=== PATIENT | male | born 1950 | race Caucasian/White ===

== ENCOUNTER 2020-08-26 11:52 | Inpatient (IN) | payer MEDICARE ==
[~2020-08-26] VITALS: Ht 170.2 cm; Wt 59.8 kg
[~2020-08-26 11:52] MED LIST: AMLODIPINE PO; ASPI81CH; ATORVASTATIN CA40 MG PO; CALCA500CH PO; CAND32; EZET10-40 PO; FISH1000 PO; Fluocinonide15 G1 TOP; LISINOPRIL PO; METO100ER; METO100ER PO; MULVITA PO; NIAC500 PO; PIME1CR TOP; Plavix75 MG PO; SIMV40; TRIA80TC TOP; VARE1 PO
[2020-08-26 13:11] LABS: BASOPHILS ABSOLUTE AUTO 0.04 K/mm3 (0.00-0.23); BASOPHILS PERCENT AUTO 1 % (0-2); EOSINOPHILS ABSOLUTE AUTO 0.04 K/mm3 (0.00-0.68); EOSINOPHILS PERCENT AUTO 1 % (0-6); Hematocrit 40.5 % (37.0-53.0); Hemoglobin 13.3 g/dL (13.5-17.5); IMMATURE GRAN ABSOLUTE AUTO 0.01 K/mm3 (0.00-0.10); IMMATURE GRAN PERCENT AUTO 0 % (0-1); LYMPHOCYTES ABSOLUTE AUTO 1.65 K/mm3 (0.84-5.20); LYMPHOCYTES PERCENT AUTO 24 % (21-46); MONOCYTES ABSOLUTE AUTO 0.58 K/mm3 (0.16-1.47); MONOCYTES PERCENT AUTO 9 % (4-13); Mean Corpuscular HGB 29.1 pg (26.0-34.0); Mean Corpuscular HGB Conc 32.8 g/dL (31.5-36.5); Mean Corpuscular Volume 89 fL (80-100); Mean Platelet Volume 10.6 fL (9.1-12.4); NEUTROPHILS ABSOLUTE AUTO 4.45 K/mm3 (1.96-9.15); NEUTROPHILS PERCENT AUTO 66 % (41-73); Platelet Count 383 K/mm3 (150-400); RDW Coefficient Variation 14.9 % (11.7-14.2); RDW Standard Deviation 48.9 fL (35.1-46.3); Red Blood Cell Count 4.57 M/mm3 (4.30-5.90); White Blood Cell Count 6.77 K/mm3 (4.00-11.30)
[2020-08-26 13:37] LABS: Alanine Aminotransfer (ALT/SGP 13 U/L (12-78); Albumin, Blood 3.4 g/dL (3.4-5.0); Albumin/Globulin Ratio 0.5 (0.8-1.8); Alk Phos 81 U/L (50-136); Anion Gap 6 mmol/L (6-16); Aspartate Aminotrans (AST/SGOT 16 U/L (12-37); Bilirubin, Total 0.4 mg/dL (0.1-1.0); Blood Urea Nitrogen 24 mg/dL (8-24); Bun/Creatinine Ratio 25.2 (12.0-20.0); CO2, Blood 29 mmol/L (21-32); Chloride, Blood 102 mmol/L (98-108); Creatinine, Blood 0.95 mg/dL (0.60-1.20); Globulin, Blood 6.2 g/dL (2.2-4.0); Glomerular Filtration Rate >60 (60-); Glucose, Blood 88 mg/dL (70-99); Potassium, Blood 3.6 mmol/L (3.5-5.5); Sodium, Blood 137 mmol/L (136-145); Total Protein, Blood 9.6 g/dL (6.4-8.2)
[2020-08-26] MEDS ORDERED: Triamcinolone A15 G3 TOP (19:57)
--- NOTE | 2020-08-27 04:23 | NUR ---
SHIFT SUMMARY PT ER ADMIT THIS SHIFT FOR CVA. PT HAS RESTED MOST OF THE NIGHT, HE HAS DENIED PAIN OR NEEDS. RIGHT SIDED WEAKNESS PRESENT PREDOMINATELY IN RIGHT ARM. RIGHT LEG DOES HAVE SOME WEAKNESS. PT UNABLE TO LIFT RIGHT ARM AND HAS TO USE HIS LEFT ARM TO NET SOFTWARE ENGINEER THE RIGHT. SPEECH IS CLEAR, PT A/OX4. TELE IN PLACE WITH NSR. PT DID HAVE A 7 BEAT RUN OF VTACH AROUND 2200, PROVIDER WAS MADE AWARE WITH NO NEW ORDERS GIVEN. PT HAS NOT HAD ANYMORE EVENTS ON TELE SINCE THAT TIME. NO OTHER CHANGES TO REPORT. BED IN LOWEST POSITION, CALL LIGHT WITHIN REACH.
[2020-08-27 04:51] LABS: BASOPHILS ABSOLUTE AUTO 0.05 K/mm3 (0.00-0.23); BASOPHILS PERCENT AUTO 1 % (0-2); EOSINOPHILS ABSOLUTE AUTO 0.14 K/mm3 (0.00-0.68); EOSINOPHILS PERCENT AUTO 2 % (0-6); Hematocrit 36.1 % (37.0-53.0); Hemoglobin 11.8 g/dL (13.5-17.5); Mean Corpuscular HGB 28.6 pg (26.0-34.0); Mean Corpuscular HGB Conc 32.7 g/dL (31.5-36.5); Mean Corpuscular Volume 88 fL (80-100); Mean Platelet Volume 10.4 fL (9.1-12.4); Platelet Count 327 K/mm3 (150-400); RDW Coefficient Variation 14.8 % (11.7-14.2); RDW Standard Deviation 47.9 fL (35.1-46.3); Red Blood Cell Count 4.12 M/mm3 (4.30-5.90); White Blood Cell Count 6.62 K/mm3 (4.00-11.30)
[2020-08-27 05:41] LABS: IMMATURE GRAN ABSOLUTE AUTO 0.01 K/mm3 (0.00-0.10); IMMATURE GRAN PERCENT AUTO 0 % (0-1); LYMPHOCYTES ABSOLUTE AUTO 1.94 K/mm3 (0.84-5.20); LYMPHOCYTES PERCENT AUTO 29 % (21-46); MONOCYTES ABSOLUTE AUTO 0.62 K/mm3 (0.16-1.47); MONOCYTES PERCENT AUTO 9 % (4-13); NEUTROPHILS ABSOLUTE AUTO 3.86 K/mm3 (1.96-9.15); NEUTROPHILS PERCENT AUTO 58 % (41-73)
[2020-08-27 05:51] LABS: Anion Gap 7 mmol/L (6-16); Blood Urea Nitrogen 23 mg/dL (8-24); Bun/Creatinine Ratio 24.9 (12.0-20.0); CHOL/HDL RATIO 5.2; CO2, Blood 26 mmol/L (21-32); Calcium, Blood 9.2 mg/dL (8.5-10.1); Chloride, Blood 105 mmol/L (98-108); Cholesterol 134 mg/dL (50-200); Creatinine, Blood 0.92 mg/dL (0.60-1.20); Glomerular Filtration Rate >60 (60-); Glucose, Blood 80 mg/dL (70-99); HDL Cholesterol 26 mg/dL (>39); LDL/HDL RATIO 3.1; Low Density Lipoprotein Chol 81 mg/dL (0-110); Potassium, Blood 3.8 mmol/L (3.5-5.5); Sodium, Blood 138 mmol/L (136-145); Triglycerides 136 mg/dL (30-160); Very Low Density Lipoprot Chol 27 mg/dL (6-32)
[2020-08-27 05:56] LABS: BASOPHILS ABSOLUTE MAN 0.13 K/mm3 (0.00-0.23); BASOPHILS PERCENT MAN 2 % (0-2); EOSINOPHILS PERCENT MAN 0 % (0-6); LYMPHOCYTES % ATYPICAL MANUAL 4 % (0-0); LYMPHOCYTES ABSOLUTE MAN 1.98 K/mm3 (0.84-5.20); LYMPHOCYTES PERCENT MAN 26 % (21-46); MONOCYTES ABSOLUTE MAN 0.19 K/mm3 (0.16-1.47); MONOCYTES PERCENT MAN 3 % (4-13); SEG NEUTROPHILS PERCENT MAN 65 % (41-73); TOTAL CELLS COUNTED 100
--- NOTE | 2020-08-27 19:18 | NUR ---
PT RESTING IN BED AFTER DINNER AND PM MEDICATION ADMIN. R DISE DEF. AND RIGHT HAND CONTRACTURE NOTED. PT REMAINED ALERT AND ORIENTED X4 AND ANXIOUSE RE DISCHARGE. PT MAKES NO COMPLAINTS AT THIS TIME. PT HAD A VTACH EPISODE THIS SHIFT WITH A RUN OF SEVEN. PT WAS ASYMPTOMATIC. STAFF WILL CONT TO MONITOR FOR CHANGES.
--- NOTE | 2020-08-28 04:21 | NUR ---
PREPRESS SPECIALIST SUMMARY A/O X4, COOPERATIVE BUT IRRITABLE AT TIMES WHEN NURSES ATTEMPT TO PROVIDE CARE. DENIES PAIN OR SOB. GROSS MOVEMENT TO RUE, WEAKNESS TO RLE. VSS, NO ACUTE CHANGES AT THIS TIME. BED IN LOWEST POSITION WITH CALL LIGHT IN REACH. WILL CONTINUE TO MONITOR AND REPORT TO ONCOMING RN.
[2020-08-28 04:48] LABS: BASOPHILS ABSOLUTE AUTO 0.04 K/mm3 (0.00-0.23); BASOPHILS PERCENT AUTO 1 % (0-2); EOSINOPHILS ABSOLUTE AUTO 0.11 K/mm3 (0.00-0.68); EOSINOPHILS PERCENT AUTO 2 % (0-6); Hematocrit 34.6 % (37.0-53.0); Hemoglobin 11.4 g/dL (13.5-17.5); IMMATURE GRAN ABSOLUTE AUTO 0.01 K/mm3 (0.00-0.10); IMMATURE GRAN PERCENT AUTO 0 % (0-1); LYMPHOCYTES ABSOLUTE AUTO 2.05 K/mm3 (0.84-5.20); LYMPHOCYTES PERCENT AUTO 29 % (21-46); MONOCYTES ABSOLUTE AUTO 0.78 K/mm3 (0.16-1.47); MONOCYTES PERCENT AUTO 11 % (4-13); Mean Corpuscular HGB 29.2 pg (26.0-34.0); Mean Corpuscular HGB Conc 32.9 g/dL (31.5-36.5); Mean Corpuscular Volume 89 fL (80-100); Mean Platelet Volume 10.8 fL (9.1-12.4); NEUTROPHILS ABSOLUTE AUTO 4.14 K/mm3 (1.96-9.15); NEUTROPHILS PERCENT AUTO 58 % (41-73); Platelet Count 318 K/mm3 (150-400); RDW Coefficient Variation 14.7 % (11.7-14.2); RDW Standard Deviation 47.5 fL (35.1-46.3); Red Blood Cell Count 3.91 M/mm3 (4.30-5.90); White Blood Cell Count 7.13 K/mm3 (4.00-11.30)
[2020-08-28] MEDS ORDERED: ATOR40TA PO (12:03)
[2020-08-28] MEDS ORDERED: ASPI81CH PO (12:04)
[2020-08-28] MEDS ORDERED: METO25ER PO (12:05)
--- NOTE | 2020-08-28 17:32 | NUR ---
PT WAS DISCHARGED VIA WHEELCHAIR WITH FAMILY AT SIDE. PT WAS ALERT AND ORIENTED, IV LINE DC'D AND WNL. PT BELONGINGS AT SIDE. PT WAS ABLE TO VERBAIZE UNDERSTANDING OF DISCHARGE INSTRUCTIONS. MEDICATIONS FAXED AND EDUCATION PROVIDED.
== END 2020-08-28 15:28 | disposition home or self-care (01) | DRG 65 ==
LOC: ER 11:52 → ERHOLD 16:07 → MEDS 16:07
PROVIDERS: Family Medicine; Physician Assistant; ADMIT Internal Medicine
DX: I63.532 Cerebral infarction due to unspecified occlusion or stenosis of left posterior cerebral artery (principal); G81.91 Hemiplegia, unspecified affecting right dominant side; I50.22 Chronic systolic (congestive) heart failure; I25.10 Atherosclerotic heart disease of native coronary artery without angina pectoris; I11.0 Hypertensive heart disease with heart failure; I65.21 Occlusion and stenosis of right carotid artery; R73.03 Prediabetes; E78.00 Pure hypercholesterolemia, unspecified; F17.210 Nicotine dependence, cigarettes, uncomplicated; I25.2 Old myocardial infarction; Z86.73 Personal history of transient ischemic attack (TIA), and cerebral infarction without residual deficits; Z95.5 Presence of coronary angioplasty implant and graft; Z79.02 Long term (current) use of antithrombotics/antiplatelets
CPT/HCPCS: 36415; 70450; 70496; 80048; 80053; 80061; 82947; 83036; 85025; 92610; 93306; 93880; 96372; 97110; 97116; 97162; 97166; 97530; 99285-25; A9270; G0378; J1650; Q9967

== ENCOUNTER 2021-01-01 11:07 | Emergency (ER) | payer MEDICARE ==
[~2021-01-01] VITALS: Ht 170.2 cm; Wt 59.0 kg
[~2021-01-01 11:07] MED LIST changes: +ASPI81CH PO; +ATOR40TA PO; +METO25ER PO; +Triamcinolone A15 G3 TOP
[2021-01-01 11:58] LABS: BASOPHILS ABSOLUTE AUTO 0.04 K/mm3 (0.00-0.23); BASOPHILS PERCENT AUTO 0 % (0-2); EOSINOPHILS ABSOLUTE AUTO 0.04 K/mm3 (0.00-0.68); EOSINOPHILS PERCENT AUTO 0 % (0-6); Hematocrit 46.3 % (37.0-53.0); Hemoglobin 14.7 g/dL (13.5-17.5); IMMATURE GRAN ABSOLUTE AUTO 0.06 K/mm3 (0.00-0.10); IMMATURE GRAN PERCENT AUTO 1 % (0-1); LYMPHOCYTES ABSOLUTE AUTO 0.84 K/mm3 (0.84-5.20); LYMPHOCYTES PERCENT AUTO 8 % (21-46); MONOCYTES ABSOLUTE AUTO 0.69 K/mm3 (0.16-1.47); MONOCYTES PERCENT AUTO 6 % (4-13); Mean Corpuscular HGB 28.6 pg (26.0-34.0); Mean Corpuscular HGB Conc 31.7 g/dL (31.5-36.5); Mean Corpuscular Volume 90 fL (80-100); Mean Platelet Volume 11.4 fL (9.1-12.4); NEUTROPHILS ABSOLUTE AUTO 9.05 K/mm3 (1.96-9.15); NEUTROPHILS PERCENT AUTO 84 % (41-73); Platelet Count 208 K/mm3 (150-400); RDW Coefficient Variation 20.8 % (11.7-14.2); RDW Standard Deviation 65.5 fL (35.1-46.3); Red Blood Cell Count 5.14 M/mm3 (4.30-5.90); White Blood Cell Count 10.72 K/mm3 (4.00-11.30)
[2021-01-01 12:09] LABS: Alanine Aminotransfer (ALT/SGP 67 U/L (12-78); Albumin, Blood 2.3 g/dL (3.4-5.0); Albumin/Globulin Ratio 0.4 (0.8-1.8); Alk Phos 81 U/L (50-136); Anion Gap 8 mmol/L (6-16); Aspartate Aminotrans (AST/SGOT 44 U/L (12-37); Bilirubin, Total 1.5 mg/dL (0.1-1.0); Blood Urea Nitrogen 19 mg/dL (8-24); Bun/Creatinine Ratio 20.4 (12.0-20.0); CO2, Blood 22 mmol/L (21-32); Calcium, Blood 8.3 mg/dL (8.5-10.1); Chloride, Blood 109 mmol/L (98-108); Creatinine, Blood 0.93 mg/dL (0.60-1.20); Globulin, Blood 5.4 g/dL (2.2-4.0); Glomerular Filtration Rate >60 (60-); Glucose, Blood 105 mg/dL (70-99); Potassium, Blood 4.1 mmol/L (3.5-5.5); Sodium, Blood 139 mmol/L (136-145); Total Protein, Blood 7.7 g/dL (6.4-8.2); Troponin I 0.025 ng/mL (0.000-0.040)
[2021-01-01 12:42] LABS: SARS-Cov-2 (COVID-19) PCR, MMC NEGATIVE (NEGATIVE)
[2021-01-01] MEDS ORDERED: Lasix20 MG PO (13:37)
[2021-01-01 13:38] LABS: International Normalized Ratio 1.26; Prothrombin Time Results 13.4 Sec (9.7-11.5)
[2021-01-01 15:58] LABS: Automated BF WBC Count 2.164 K/mm3 (0-999); Body Fluid WBC Count 2164 /mm3 (0-999)
[2021-01-01 16:25] LABS: Glucose, Body Fluid 98 mg/dL
[2021-01-01 16:35] LABS: Lactate Dehydrogenase, Body Fl 200 U/L; Protein, Body Fluid 2.3 g/dL
[2021-01-01 16:40] LABS: RBC Count, Body Fluid 30 /mm3 (0-0)
[2021-01-01 16:41] LABS: Appearance, Body Fluid Clear (Clear); Color, Body Fluid Yellow (None-Yellow)
[2021-01-01 17:18] LABS: Total Cell Count, Body Fluid 100
== END 2021-01-01 16:33 | disposition home or self-care (01) ==
LOC: ER 11:07
PROVIDERS: Emergency Medicine; Physician Assistant
DX: I11.0 Hypertensive heart disease with heart failure (principal); I50.9 Heart failure, unspecified; J90 Pleural effusion, not elsewhere classified; I25.10 Atherosclerotic heart disease of native coronary artery without angina pectoris; F17.200 Nicotine dependence, unspecified, uncomplicated; Z88.5 Allergy status to narcotic agent; Z88.1 Allergy status to other antibiotic agents; Z88.4 Allergy status to anesthetic agent; Z88.8 Allergy status to other drugs, medicaments and biological substances; Z20.822 Contact with and (suspected) exposure to COVID-19; Z79.82 Long term (current) use of aspirin; Z79.899 Other long term (current) drug therapy
CPT/HCPCS: 32555; 36415; 71045; 71046; 80053; 82945; 83615; 83690; 83880; 84157; 84484; 85025; 85610; 85730; 87070; 87205; 89051; 93005; 93010; 96374; 99285-25; J1940; U0004

== ENCOUNTER 2021-02-12 11:42 | Emergency (ER) | payer MEDICARE ==
[~2021-02-12] VITALS: Ht 170.2 cm; Wt 59.9 kg
[~2021-02-12 11:42] MED LIST changes: +Lasix20 MG PO
[2021-02-12 13:38] LABS: BASOPHILS ABSOLUTE AUTO 0.04 K/mm3 (0.00-0.23); BASOPHILS PERCENT AUTO 1 % (0-2); EOSINOPHILS ABSOLUTE AUTO 0.01 K/mm3 (0.00-0.68); EOSINOPHILS PERCENT AUTO 0 % (0-6); Hematocrit 49.5 % (37.0-53.0); Hemoglobin 15.8 g/dL (13.5-17.5); IMMATURE GRAN ABSOLUTE AUTO 0.03 K/mm3 (0.00-0.10); IMMATURE GRAN PERCENT AUTO 0 % (0-1); LYMPHOCYTES ABSOLUTE AUTO 1.25 K/mm3 (0.84-5.20); LYMPHOCYTES PERCENT AUTO 17 % (21-46); MONOCYTES ABSOLUTE AUTO 0.46 K/mm3 (0.16-1.47); MONOCYTES PERCENT AUTO 6 % (4-13); Mean Corpuscular HGB 28.8 pg (26.0-34.0); Mean Corpuscular HGB Conc 31.9 g/dL (31.5-36.5); Mean Corpuscular Volume 90 fL (80-100); Mean Platelet Volume 12.1 fL (9.1-12.4); NEUTROPHILS ABSOLUTE AUTO 5.53 K/mm3 (1.96-9.15); NEUTROPHILS PERCENT AUTO 76 % (41-73); NRBC ABSOLUTE 0.02 K/mm3 (0.00-0.02); NRBC Auto 0.3 /100 WBC (0.0-0.2); Platelet Count 182 K/mm3 (150-400); RDW Coefficient Variation 21.8 % (11.7-14.2); RDW Standard Deviation 67.7 fL (35.1-46.3); Red Blood Cell Count 5.49 M/mm3 (4.30-5.90); White Blood Cell Count 7.32 K/mm3 (4.00-11.30)
[2021-02-12 13:46] LABS: International Normalized Ratio 2.24; Prothrombin Time Results 23.1 Sec (9.7-11.5)
[2021-02-12 13:53] LABS: Alanine Aminotransfer (ALT/SGP 162 U/L (12-78); Albumin, Blood 2.3 g/dL (3.4-5.0); Albumin/Globulin Ratio 0.4 (0.8-1.8); Alk Phos 82 U/L (50-136); Anion Gap 8 mmol/L (6-16); Aspartate Aminotrans (AST/SGOT 268 U/L (12-37); Bilirubin, Total 1.8 mg/dL (0.1-1.0); Blood Urea Nitrogen 32 mg/dL (8-24); Bun/Creatinine Ratio 27.4 (12.0-20.0); CO2, Blood 23 mmol/L (21-32); Calcium, Blood 9.2 mg/dL (8.5-10.1); Chloride, Blood 107 mmol/L (98-108); Creatinine, Blood 1.17 mg/dL (0.60-1.20); Globulin, Blood 5.8 g/dL (2.2-4.0); Glomerular Filtration Rate >60 (60-); Glucose, Blood 140 mg/dL (70-99); Potassium, Blood 4.8 mmol/L (3.5-5.5); Sodium, Blood 138 mmol/L (136-145); Total Protein, Blood 8.1 g/dL (6.4-8.2)
[2021-02-12 14:26] LABS: SARS-Cov-2 (COVID-19) PCR, MMC NEGATIVE (NEGATIVE)
== END 2021-02-12 16:55 | disposition home or self-care (01) ==
LOC: ER 11:42
PROVIDERS: Emergency Medicine
DX: J90 Pleural effusion, not elsewhere classified (principal); I11.0 Hypertensive heart disease with heart failure; I50.9 Heart failure, unspecified; I25.10 Atherosclerotic heart disease of native coronary artery without angina pectoris; I25.2 Old myocardial infarction; F17.200 Nicotine dependence, unspecified, uncomplicated; Z20.822 Contact with and (suspected) exposure to COVID-19; Z86.73 Personal history of transient ischemic attack (TIA), and cerebral infarction without residual deficits; Z88.5 Allergy status to narcotic agent; Z88.1 Allergy status to other antibiotic agents; Z88.8 Allergy status to other drugs, medicaments and biological substances; Z79.899 Other long term (current) drug therapy; Z79.82 Long term (current) use of aspirin
CPT/HCPCS: 71250; 80053; 85025; 85610; 99284-25; A9270; U0004

== ENCOUNTER 2021-02-15 14:55 | Emergency (ER) | payer MEDICARE ==
[~2021-02-15] VITALS: Ht 170.2 cm; Wt 62.1 kg
== END 2021-02-15 16:00 | disposition home or self-care (01) ==
LOC: ER 14:55
DX: J90 Pleural effusion, not elsewhere classified (principal); I11.0 Hypertensive heart disease with heart failure; I50.9 Heart failure, unspecified; I25.2 Old myocardial infarction; I25.10 Atherosclerotic heart disease of native coronary artery without angina pectoris; F17.210 Nicotine dependence, cigarettes, uncomplicated; Z88.5 Allergy status to narcotic agent; Z88.1 Allergy status to other antibiotic agents; Z88.8 Allergy status to other drugs, medicaments and biological substances; Z79.899 Other long term (current) drug therapy; Z79.82 Long term (current) use of aspirin
CPT/HCPCS: 99282

== ENCOUNTER 2021-02-19 23:17 | Emergency (ER) | payer MEDICARE ==
[~2021-02-19] VITALS: Ht 170.2 cm; Wt 59.0 kg
== END 2021-02-20 01:30 | disposition home or self-care (01) ==
LOC: ER 23:17
DX: J90 Pleural effusion, not elsewhere classified (principal); F41.9 Anxiety disorder, unspecified; I11.0 Hypertensive heart disease with heart failure; I50.9 Heart failure, unspecified; I25.10 Atherosclerotic heart disease of native coronary artery without angina pectoris; I25.2 Old myocardial infarction; F17.210 Nicotine dependence, cigarettes, uncomplicated; Z88.5 Allergy status to narcotic agent; Z88.1 Allergy status to other antibiotic agents; Z88.8 Allergy status to other drugs, medicaments and biological substances; Z79.899 Other long term (current) drug therapy; Z79.82 Long term (current) use of aspirin
CPT/HCPCS: 36415; 93005; 93010; 99285-25

== ENCOUNTER 2021-02-22 13:20 | Inpatient (IN) | payer MEDICARE ==
[~2021-02-22] VITALS: Ht 175.3 cm; Wt 58.0 kg
[2021-02-22 13:55] LABS: PCO2 Arterial 26.8 mmHg (35-45); PO2 Arterial 458 mmHg (80-100); pH Blood Arterial 7.44 (7.35-7.45)
[2021-02-22 14:34] LABS: BASOPHILS ABSOLUTE AUTO 0.05 K/mm3 (0.00-0.23); BASOPHILS PERCENT AUTO 0 % (0-2); EOSINOPHILS ABSOLUTE AUTO 0.01 K/mm3 (0.00-0.68); EOSINOPHILS PERCENT AUTO 0 % (0-6); Hemoglobin 17.8 g/dL (13.5-17.5); IMMATURE GRAN PERCENT AUTO 1 % (0-1); LYMPHOCYTES PERCENT AUTO 10 % (21-46); MONOCYTES PERCENT AUTO 6 % (4-13); Mean Corpuscular HGB Conc 31.8 g/dL (31.5-36.5); Mean Corpuscular Volume 91 fL (80-100); NEUTROPHILS ABSOLUTE AUTO 9.53 K/mm3 (1.96-9.15); NEUTROPHILS PERCENT AUTO 82 % (41-73); NRBC ABSOLUTE 0.07 K/mm3 (0.00-0.02); NRBC Auto 0.6 /100 WBC (0.0-0.2); Platelet Count 110 K/mm3 (150-400); RDW Coefficient Variation 21.9 % (11.7-14.2); RDW Standard Deviation 68.2 fL (35.1-46.3); Red Blood Cell Count 6.13 M/mm3 (4.30-5.90); White Blood Cell Count 11.59 K/mm3 (4.00-11.30)
[2021-02-22 14:55] LABS: Albumin, Blood 2.2 g/dL (3.4-5.0); Albumin/Globulin Ratio 0.3 (0.8-1.8); Bilirubin, Total 2.3 mg/dL (0.1-1.0); Bun/Creatinine Ratio 31.1 (12.0-20.0); Calcium, Blood 9.3 mg/dL (8.5-10.1); Creatinine, Blood 1.51 mg/dL (0.60-1.20); Globulin, Blood 6.5 g/dL (2.2-4.0); Potassium, Blood 4.9 mmol/L (3.5-5.5); Total Protein, Blood 8.7 g/dL (6.4-8.2)
[2021-02-22 14:59] LABS: Troponin I 2.57 ng/mL (0.000-0.040)
[2021-02-22 15:33] LABS: SARS-Cov-2 (COVID-19) PCR, MMC NEGATIVE (NEGATIVE)
[2021-02-22 16:08] LABS: International Normalized Ratio 2.16; Prothrombin Time Results 21.6 Sec (9.7-11.5)
[2021-02-22] MEDS ORDERED: Ventolin/Proventil INH (17:26)
[2021-02-22] MEDS ORDERED: ATORVASTATIN CA80 M1 PO (17:28)
[2021-02-22] MEDS ORDERED: FURO20 PO (17:29)
[2021-02-22] MEDS ORDERED: PLAQUENIL200 M1 PO (17:30)
[2021-02-22] MEDS ORDERED: EUTHYROX50 MCG PO (17:31)
[2021-02-22] MEDS ORDERED: ZESTRIL40 M1 PO (17:32)
[2021-02-22] MEDS ORDERED: METO25ER PO (17:33)
[2021-02-22] MEDS ORDERED: KLOR-CON 1010 ME1 PO (17:34)
[2021-02-22] MEDS ORDERED: ANORO ELLIPTA1 EACH INH (17:36)
[2021-02-22] MEDS ORDERED: Coumadin2.5 MG PO (17:37)
[2021-02-22 18:02] LABS: Body Fluid WBC Count 60 /mm3 (0-999)
[2021-02-22 18:12] LABS: Albumin, Body Fluid 0.4 g/dL
[2021-02-22 18:21] LABS: Appearance, Body Fluid Clear (Clear); Color, Body Fluid Yellow (None-Yellow); RBC Count, Body Fluid 126 /mm3 (0-0)
[2021-02-22 18:29] LABS: Total Cell Count, Body Fluid 100
[2021-02-22 18:34] LABS: Lactate Dehydrogenase, Body Fl 106 U/L
[2021-02-22 22:53] LABS: Hematocrit 47.4 % (37.0-53.0); Hemoglobin 15.2 g/dL (13.5-17.5)
--- NOTE | 2021-02-22 23:59 | NUR ---
PATIENT IS MOANING AND GROANING IN PAIN, C/O 9/10 PAIN IN HIS BACK, LAYING ON HIS SIDE, CRITICAL LAB 3.540 TROPONINS, CRACKLES AND RHONCHI HEARD MORE SIGNIFICANT ON THE RIGHT THAN LEFT, AUDITORY WET CRACKLE SOUNDS, PATIENT IS MORE ALERT AND ABLE TO KEEP AWAKE PASSED > 10 SECONDS AND MAKE HIS NEEDS KNOWN, MD CALLED AND NEW ORDERS RECEIVED.
--- NOTE | 2021-02-23 06:42 | NUR ---
PATIENT ARRIVED AT 1950 FROM ED, LETHARGIC UNABLE TO SUSTAIN EYE AWAKENING > 10SEC, WAS ABLE TO ANSWER SOME ADMISSION QUESTIONS. ON TELEMETRY, POLST OXIMETRY, CONDOM CATH APPLIED NO URINE OUTPUT NOTED THIS SHIFT, BLADDER SCANNED UP0N ADMISSION 15ML RESIDUAL, BLADDER SCANNED AT END OF SHIFT 150ML RESIDUAL WILL PASS ON DAYSHIFT. PATIENT IS RESTING COMFORTABLY IN BED CALLS OUT OCCASIONALLY IN HIS SLEEP. C/O OF BACK PAIN 9/10 RECEIVED 0.5 DILAUDID IVP AND 0/10 EFFECTIVE. TRENDING POSITIVE TROPONINS AND H/H'S. LABS DUE AT 0630 THIS AM.
[2021-02-23 07:48] LABS: BASOPHILS ABSOLUTE AUTO 0.04 K/mm3 (0.00-0.23); BASOPHILS PERCENT AUTO 0 % (0-2); Hematocrit 46.5 % (37.0-53.0); Hemoglobin 14.8 g/dL (13.5-17.5); LYMPHOCYTES ABSOLUTE AUTO 1.05 K/mm3 (0.84-5.20); LYMPHOCYTES PERCENT AUTO 7 % (21-46); MONOCYTES ABSOLUTE AUTO 0.67 K/mm3 (0.16-1.47); MONOCYTES PERCENT AUTO 4 % (4-13); Mean Corpuscular HGB 29.2 pg (26.0-34.0); Mean Corpuscular HGB Conc 31.8 g/dL (31.5-36.5); Mean Corpuscular Volume 92 fL (80-100); NRBC ABSOLUTE 0.09 K/mm3 (0.00-0.02); NRBC Auto 0.6 /100 WBC (0.0-0.2); Platelet Count 95 K/mm3 (150-400); RDW Coefficient Variation 21.6 % (11.7-14.2); RDW Standard Deviation 68.6 fL (35.1-46.3); Red Blood Cell Count 5.06 M/mm3 (4.30-5.90); White Blood Cell Count 15.91 K/mm3 (4.00-11.30)
[2021-02-23 07:52] LABS: EOSINOPHILS PERCENT AUTO 0 % (0-6); IMMATURE GRAN ABSOLUTE AUTO 0.09 K/mm3 (0.00-0.10); IMMATURE GRAN PERCENT AUTO 1 % (0-1); NEUTROPHILS ABSOLUTE AUTO 14.06 K/mm3 (1.96-9.15); NEUTROPHILS PERCENT AUTO 88 % (41-73)
[2021-02-23 08:00] LABS: International Normalized Ratio 2.42
[2021-02-23 08:22] LABS: Albumin, Blood 1.9 g/dL (3.4-5.0); BAND PERCENT MAN 4 % (0-8); BASOPHILS PERCENT MAN 0 % (0-2); Bun/Creatinine Ratio 32.9 (12.0-20.0); Calcium, Blood 8.4 mg/dL (8.5-10.1); Creatinine, Blood 1.7 mg/dL (0.60-1.20); EOSINOPHILS PERCENT MAN 0 % (0-6); LYMPHOCYTES ABSOLUTE MAN 1.43 K/mm3 (0.84-5.20); LYMPHOCYTES PERCENT MAN 9 % (21-46); MONOCYTES ABSOLUTE MAN 0.31 K/mm3 (0.16-1.47); MONOCYTES PERCENT MAN 2 % (4-13); Magnesium, Blood 2.5 mg/dL (1.6-2.4); NEUTROPHILS ABSOLUTE MAN 14.15 K/mm3 (1.96-9.15); Phosphorus, Blood 7.2 mg/dL (2.5-4.9); Potassium, Blood 5.7 mmol/L (3.5-5.5); SEG NEUTROPHILS PERCENT MAN 85 % (41-73); TOTAL CELLS COUNTED 100
[2021-02-23 09:02] LABS: Albumin/Globulin Ratio 0.4 (0.8-1.8); Globulin, Blood 4.7 g/dL (2.2-4.0); Total Protein, Blood 6.6 g/dL (6.4-8.2); Troponin I 3.56 ng/mL (0.000-0.040)
[2021-02-23 10:33] LABS: Source, Urine Catheter
[2021-02-23 11:04] LABS: Appearance, Urine Clear (Clear); Bilirubin, Urine Neg (Neg); Blood, Urine 2+ (Neg); Color, Urine Amber (P-Yellow); Glucose Qualitative, Urine Neg (Neg); Ketones, Urine 1+ (Neg); Leukocyte Esterase, Urine 2+ (Neg); Nitrite, Urine Neg (Neg); Protein, Urine 2+ (Neg); Specific Gravity, Urine 1.025 (1.003-1.022); Urobilinogen, Urine 1+ (Normal)
[2021-02-23 11:19] LABS: Bacteria Few /hpf; Squamous Epithelial Cells Few /hpf (Few)
[2021-02-23 11:20] LABS: Calcium Oxalate Crystals Few /hpf; RBC Cast 0-2 /lpf (0)
[2021-02-23 12:48] LABS: Hematocrit 45.6 % (37.0-53.0); Hemoglobin 14.6 g/dL (13.5-17.5)
--- NOTE | 2021-02-23 18:03 | NUR ---
SHIFT SUMMARY; ASSUMED CARE AT 0700, WAKES TO VERBAL STIMULI AND ANSWERS QUESTIONS APPROPRIATLY. CONDOM CATH IN PLACE. NO OUTPUT DURING NIGHT PER RN. SLIGHT AMOUNT OF URINE IN DRAINAGE BAG TUBING. BED REST WITH Q2 TURNS. MULTIPLE SKIN ABRASIANS AND SCRATCHES. MEPILEX PLACED ON COCCYX FOR PREVENTION. 1 EPISODE OF BRIGHT RED BLOOD WITH MUCOUS IN ATTENDS WITHOUT STOOL, NO EXTERNAL HEMMRHOID OBSERVED. DR. VILLALTA NOTIFIED. WILL CONTINUE TO [facility]. DAUGHTER TO BEDSIDE TO MEET WITH PALLATIVE CARE RN. CHANGED TO DNR BUT WANTS TO CONTINUE WITH CURRENT TREATMENT. PT PULLED CONDOM CATH OFF, DUPONT PLACED. WILL CONTINUE TO MONITOR UNTIL CHANGE OF SHIFT.
--- NOTE | 2021-02-23 18:28 | NUR ---
Met with pt's daughter today; she came for a quick visit. She was tearful after the visit, and states she would never want him to suffer. She quickly came to the decision to change his code status to DNR, and we filled out a new POLST together. She chose DNR with limited interventions, as she wants to continue his antibiotics for now. Spoke with glenys Higgins to change code status to DNR per new POLST. She will sign it tomorrow. No other changes at this time.
[2021-02-23 19:32] LABS: Hemoglobin 13.7 g/dL (13.5-17.5)
[2021-02-24 04:48] LABS: International Normalized Ratio 2.66; Prothrombin Time Results 26.2 Sec (9.7-11.5)
[2021-02-24 04:52] LABS: Albumin, Blood 2.3 g/dL (3.4-5.0); Albumin/Globulin Ratio 0.6 (0.8-1.8); Bilirubin, Total 2.1 mg/dL (0.1-1.0); Bun/Creatinine Ratio 36.7 (12.0-20.0); Calcium, Blood 8.2 mg/dL (8.5-10.1); Creatinine, Blood 1.66 mg/dL (0.60-1.20); Globulin, Blood 4.1 g/dL (2.2-4.0); Potassium, Blood 3.8 mmol/L (3.5-5.5); Total Protein, Blood 6.4 g/dL (6.4-8.2)
--- NOTE | 2021-02-24 05:04 | NUR ---
Shift Summary Pt has slept for a majority of the night, easily rousible though lethargic. Pt followed simple commands though was slow to respond verbally. Pt did not respond when asked if they were in pain though they would grimace and moan during repositioning, treated per orders. Pt became insistent on speaking with daughter, she was called and decided to come in in order to speak with the Pt. No other acute changes noted.
[2021-02-24 05:07] LABS: Hematocrit 41.2 % (37.0-53.0); Hemoglobin 13.3 g/dL (13.5-17.5); Mean Corpuscular HGB 29.5 pg (26.0-34.0); Mean Corpuscular HGB Conc 32.3 g/dL (31.5-36.5); Mean Corpuscular Volume 91 fL (80-100); Mean Platelet Volume 10.8 fL (9.1-12.4); NRBC ABSOLUTE 0.05 K/mm3 (0.00-0.02); NRBC Auto 0.5 /100 WBC (0.0-0.2); Platelet Count 80 K/mm3 (150-400); RDW Coefficient Variation 21.2 % (11.7-14.2); RDW Standard Deviation 66.4 fL (35.1-46.3); Red Blood Cell Count 4.51 M/mm3 (4.30-5.90); White Blood Cell Count 9.56 K/mm3 (4.00-11.30)
--- NOTE | 2021-02-24 06:35 | NUR ---
UPDATE PT HAD SMALL AMOUNT OF JOHN RED BLOOD IN HIS ATTENDS THIS AM. PT ALSO SUCTIONED ORALLY PRODUCING BRIGHT RED BLOOD.
--- NOTE | 2021-02-24 17:47 | NUR ---
SHIFT SUMMARY: PT CONTINUES LETHARGIC, ABLE TO ANSWER QUESTIONS BUT SLOW TO RESPOND IF HE NEEDS TO CATCH HIS BREATH BETWEEN WORDS, FALLS ASLEEP OFTEN. PT MAINTAINING O2 SATS >95% ON RA, BUT HAS HAD AUDITORY WET BREATH SOUNDS THAT IS NOT RELIEVED WITH SUCTIONING. SR ON MONITOR WITH 3 EPISODES OF VTACH, LONGEST RUN BEING [address] VILLALTA AWARE OF VTACH RUNS VIA TELEPHONE, RHYTHM STRIP IN CHART. THIS AM, PT NOTED TO HAVE LARGE AMOUNT OF DRIED BLOODY SPUTUM ACROSS THE ROOF AND BACK OF MOUTH WELL HIS TONGUE. PTs MOUTH CLEANED WITH WET SWABS AND SUCTIONING. PT HAS DRY MUCOUS MEMBRANES W/ORAL CARE PROVIDED OFTEN T/OUT SHIFT. NO BM OR BLOODY SPUTUM NOTED T/OUT SHIFT. PALLIATIVE CARE AND DR VILLALTA CONSULTED TODAY RE: CODE STATUS AND PLAN OF CARE. DR VILLALTA STATES PTs DAUGHTER CHANGED STATUS TO DNR BUT WOULD LIKE TO WAIT TO PURSUE CC OR HOSPICE UNTIL TREATMENT OPTIONS HAVE BEEN EXPLORED. WILL CONTINUE TO MONITOR AND TREAT PT ACCORDINGLY UNTIL CHANGE OF SHIFT.
--- NOTE | 2021-02-25 04:05 | NUR ---
UPDATED DR. PAEZ OF PT EPISODE OF BLOODY COUGH - APPX 30-50CC - H&H STABLE. ALSO REPORTED PER DAY SHIFT, RN, THAT THEY PERFORMED ORAL CARE DURING DAY SHIFT AND PT DEVELOPED BLEEDING AFTER ORAL CARE TODAY.
[2021-02-25 04:15] LABS: Hematocrit 40.2 % (37.0-53.0); Hemoglobin 12.9 g/dL (13.5-17.5); Mean Corpuscular HGB 28.9 pg (26.0-34.0); Mean Corpuscular HGB Conc 32.1 g/dL (31.5-36.5); Mean Corpuscular Volume 90 fL (80-100); NRBC ABSOLUTE 0.02 K/mm3 (0.00-0.02); NRBC Auto 0.3 /100 WBC (0.0-0.2); Platelet Count 71 K/mm3 (150-400); RDW Coefficient Variation 21.9 % (11.7-14.2); RDW Standard Deviation 68.1 fL (35.1-46.3); Red Blood Cell Count 4.46 M/mm3 (4.30-5.90)
[2021-02-25 04:26] LABS: International Normalized Ratio 2.16; Prothrombin Time Results 21.6 Sec (9.7-11.5)
[2021-02-25 04:33] LABS: Albumin, Blood 2.7 g/dL (3.4-5.0); Albumin/Globulin Ratio 0.7 (0.8-1.8); Bilirubin, Total 3.2 mg/dL (0.1-1.0); Bun/Creatinine Ratio 33.8 (12.0-20.0); Calcium, Blood 8.8 mg/dL (8.5-10.1); Creatinine, Blood 1.42 mg/dL (0.60-1.20); Globulin, Blood 3.9 g/dL (2.2-4.0); Magnesium, Blood 2.5 mg/dL (1.6-2.4); Potassium, Blood 2.9 mmol/L (3.5-5.5); Total Protein, Blood 6.6 g/dL (6.4-8.2)
[2021-02-25 04:43] LABS: Phosphorus, Blood 3.2 mg/dL (2.5-4.9)
--- NOTE | 2021-02-25 07:20 | NUR ---
INITIAL ASSESSMENT: Patient is awake, alert and oriented. Patient has a history of CVA and right sided weakness. Fish Cleaner Machine Tender weak on the right, pedal plantar weak on the right. Left pupil 6mm, not responsive, right pupil 3 sluggish. LS very coarse T/O, Suctioned with the yonkur, pt does not have a gag reflex, moderate amount of red secretions suctioned. Biox 96% on RA. HRR, SR in the 90s. BT+. PPP. Patient has scattered bruising on BUE and some abrasions on his right sebastian. Mepilex to coccyx, patient has some purplish discoloration to right bottock/coccyx area. VSS. Patient is requesting water at this time, he states "you cannot deny me water, I know my rights." I educated the patient he is on swallow precautions and speech therapy has him NPO right now for aspiration. Call light in reach. Will continue to monitor.
--- NOTE | 2021-02-25 07:31 | NUR ---
SHIFT SUMMARY PT LETHARGIC AND C/O FEELING DRY THROUGHOUT EVENING. REMAINS NPO. MOANS OUT REQUESTING WATER. ON 2L NC SATS OVER 95%. TELE READS 80'S NSR WITH PVC'S POTASSIUM IN AM LABS AT 2.9, DOWN FROM 3.8 PREVIOUS DAY. PROVIDER NOTIFIED AND 2 BAGS OF 20MEQ/100ML ORDERED AND STARTED. 8/10 PAIN ON RIGHT LOWER EXTREMITY. RELIEVED PER EMAR. POWERGLIDE IN SHELIA PATENT AND DRAWS BLOOD. FREQUENT ORAL CARE GIVEN. PT COUGHED OUT 30-40 CC'S OF BLOOD. DUPONT IN PLACE DRAINING DARK YELLOW URINE TO GRAVITY. WILL CONTINUE TO MONITOR UNTIL REPORT GIVEN TO DAYSHIFT RN
--- NOTE | 2021-02-25 12:30 | NUR ---
UPDATE: Assessment unchanged. RT to bedside, NT suctioned the patient, pt has copious amounts of blood tinged sputum. Patient still has some coarseness noted still. Palliative care RN and MD to discuss plan of care with patients daughter. I talked with the daughter Meenakshi this am and provided an update. Daughter states the plan is to finish treating pts PNA and then for the patient to be placed on, "comfort care." VSS. Patient denies other needs at this time. Call light in reach. Will continue to monitor.
--- NOTE | 2021-02-25 12:45 | NUR ---
Spoke with Pt's Primary RN Lien and discussed case. Pt resting in bed upon arrival. Pt denies pain at this time. Pt appears dyspneic as evidenced by work of breathing. Moderate secretions noted. Engaged in therapeutic listening as Pt states "I know I'm dying". Contined therapeutic listening. Discussed the option for comfort care and educated on comfort care philosophy. Pt reports wanting to focus on comfort and states "I'm ready to go". Pt agreeable for this RN to contact his daughter Minnie. Called and spoke with Minnie. Provided update on this RN's visit with Pt and wishes he is exressing. Minnie reports plan to come in today and complete Last Will and Durable POA with Pt. She reports she is leaning towards comfort care as well but Pt can not come home on hospice due to her being evicted and having no place for him to go. Minnie is requesting for hospitalist to call her. She is inquiring how the antibiotics are working. Spoke with Dr Easton, discussed case and relayed daughter's request. Palliative Care will remain available.
--- NOTE | 2021-02-25 14:00 | NUR ---
Update: Dr. Easton talked with the daughter, comfort care orders now in. Daughter to bedside to see patient. Patient given roxanol for comfort. Daughter and patient deny other needs at this time. Call light in reach, will continue to monitor.
--- NOTE | 2021-02-25 15:09 | NUR ---
Case Conference Note Spoke with Dr Easton and discussed case. Dr Easton spoke with family and comfort care has been ordered. Plan to continue albumin and Roxanol has been ordered. Placed order for lorazepam, atropine, and scopolamine per V/O from Dr Easton. Spoke with Primary RN Lien and discussed case. Palliative Care will remain available.
--- NOTE | 2021-02-25 18:33 | NUR ---
PATIENT IS RESTING AND VISITING WITH FAMILY. HE IS HAPPY NOW THAT HE CAN EAT AND DRINK. HE DENIES PAIN, N/V, AND STATES HE IS COMFORTABLE.
--- NOTE | 2021-02-25 18:34 | NUR ---
SUMMARY: Patient did well through out the morning. He was made comfort care this afternoon. Daughter and other family members at the bedside this evening. Patient was medicated with roxanol once and atrpoine drops for secretions. Patient has been resting comfortably since. Will report to oncoming RN.
--- NOTE | 2021-02-25 19:30 | NUR ---
ACCQUIRED CARE OF PT. PT TRANSFERRED FROM PCU 10 AND REPORT RECEIVED FROM DIONNA DANIELS. PT ARRIVED AND REMAINED IN PCU BED IN ROOM. PT ARRIVED WITH A CUP OF WATER IN HIS HAND AND WAS SIPPING ON IT. DENIED PAIN. LUNGS SOUND VERY COARSE THROUGHOUT. THERE IS SWELLING AND BRUISING ON RIGHT ELBOW. GAUZE APPLIED TO RIGHT FOREARM. SCATTERED ABRASIONS NOTED. DUPONT IN PLACE, PATENT AND DRAINING CLEAR IBRAHIMA COLORED URINE. PT ARRIVED WITH X3 FAMILY MEMBERS. PT IS CURRENTLY SITTING UP IN BED AND APPEARS COMFORTABLE WITH CALL LIGHT WITHIN REACH.
--- NOTE | 2021-02-26 04:55 | NUR ---
SPIRITUAL CONSULT PLACED AFTER DAUGHTER TRINA ASKED FOR IT. SHE STATED PT FATHERS MOTHER WAS A PREACHER THAT TRAVELED ALL OVER THE [place] TO SPREAD [place]. SHE STATED THAT HER FATHER HAS BEEN AGNOSTIC ALL HIS LIFE, BUT SHE FEELS THAT NOW HE BELIVES IN THE AFTERLIFE AND IS READY TO BE SEEN BY SPIRITUAL CARE. WILL CONTINUE TO MONITOR AND ADDRESS NEEDS THEY ARISE.
--- NOTE | 2021-02-26 05:07 | NUR ---
SHIFT SUMMARY ASSUMED CARE OF PT FROM PCU. PT RESTED IN BED DURING SHIFT. DUPONT IS IN PLACE AND PATENT AND DRAINING CLEAR, IBRAHIMA COLORED URINE. ATTEMPTED TO USE BEDPAN BUT PT DID NOT END UP NEEDING TO GO. PT HAS HAD FAMILY IN HIS ROOM MOST OF THE SHIFT. PT REQUESTED SPIRITUAL CARE CONSULT AND THAT WAS ORDERED FOR HIM. PT HAS BEEN MEDICATED PER EMAR FOR PAIN BUT HAS BEEN DENYING PAIN.
--- NOTE | 2021-02-26 10:45 | NUR ---
PT REPOSITIONED FOR PAIN. DENIED THE NEED FOR PAIN MEDICATION AT THIS TIME. DAUGHTER AT BEDSIDE. PT DOES NOT USE CALL LIGHT BUT CALLS OUT WHEN HE NEEDS SOMETHING.
--- NOTE | 2021-02-26 10:47 | NUR ---
AT BEDSIDE VISITING WITH THE PATIENT AND HIS DAUGHTER.
--- NOTE | 2021-02-26 12:46 | NUR ---
Spiritual care visit attempted. Upon receiving a request for spiritual care, I visit patient. Patient immediately tells me that he is tired of people shoving reliegion down his throat. I try to assure patient that it is not my intention to anything along those lines but patient insists that his beliefs are private and he does not want to talk about christianity, the afterlife, prayer or anything of that nature and that he is at peace. I attempt to set him at ease that those topics do not have to part of our discussion in anyway but he insists that I leave the rm altogether. I, of coarse, respect his wishes and exit the rm.
--- NOTE | 2021-02-26 12:51 | NUR ---
FAMILY PRESENT AT THE BEDSIDE. NOTARY PRESENT TO ASSIST WITH THE SIGNING OF LEGAL DOCUMENTS. PT REPOSITIONED FOR PAIN. PT DENIES THE NEED FOR PAIN MEDICATION AT THIS TIME.
--- NOTE | 2021-02-26 15:42 | NUR ---
Comfort Care Visit Attempted earlier this AM to visit with Pt and Sound Recordist Vinicio valladares provided spiritual support. Case Conferenced with Pt's daughter Minnie. Answered questions and offered therapeutic listening. Called and spoke with [facility]fe per juan's request. Neri will come notarize documents. Visit with Pt this afternoon. Pt resting in bed with visitor at bedside. Pt reports pain in his abdomen and denies need for pain medications. Pt appears slightly frustrated. Encourage Pt to discuss concerns. Pt does not engage. Ended visit to allow Pt to visit with company. Palliative Care will remain available.
--- NOTE | 2021-02-26 17:36 | NUR ---
ROTATING FAMILY MEMBERS AT THE BEDSIDE.
--- NOTE | 2021-02-26 17:48 | NUR ---
SHIFT SUMMARY PT COMFORT CARE WITH FAMILY AT BEDSIDE. PT REPORTS PAIN BUT DENIES NEED FOR PAIN MEDICATION. PAIN HAS BEEN RELIEVED WITH REPOSITIONING. FAMILY BROUGHT IN LEGAL DOCUMENTS TO BE NOTORIZED TODAY AND THAT WAS ABLE TO BE DONE. PT IS EATING SNACKS BUT NOT MEALS. DUPONT DRAINING CLOUDY, IBRAHIMA URINE. WILL REPORT TO NOC RN.
--- NOTE | 2021-02-26 18:59 | NUR ---
PT MEDICATED FOR PAIN AT THIS TIME. PT PREVIOUSLY DENIED PAIN MEDICATION BECAUSE HE THOUGHT "IT WOULD KILL HIM". EDUCATED PATIENT ON PAIN MEDICATION AND INFORMED HIM THAT IT WOULD PROBABLY HELP HIM BE MORE COMFORTABLE. DAUGHTER AT THE BEDSIDE.
--- NOTE | 2021-02-27 00:33 | NUR ---
PT SLEEPING QUIETLY.RESP SHALLOW BUT EVEN.
--- NOTE | 2021-02-27 11:05 | NUR ---
Pt resting in bed with his eyes closed upon arrival. Pt appears comfortable with no S/S of distress at this time. This RN did not disturb Pt. Called and spoke with Daughter Minnie. Minnie reports completing DPOA incorrectly and requesting a notary for a new DPOA. She is also requesting a note from MD of Pt's A&O. Called and spoke with Dr Easton. Dr Easton will write a note when he see's Pt today. Spoke with Primary RN Alicia and discussed case. Spoke with [facility] and relayed family request for notary. Palliative Care will remain available.
--- NOTE | 2021-02-27 14:03 | NUR ---
Comfort Care Visit Pt resting in bed with his eyes closed. No nonverbal indicators of disress at this time. Daughter Minnie at bedside. Offered therapeutic listening and answered questions. Palliative Care will remain available.
--- NOTE | 2021-02-27 14:19 | NUR ---
PT VERY LETHARGIC THIS AM. ACCORDING TO THE DAUGHTER HE HAS FINALLY BEEN ABLE TO GET SOME SLEEP AFTER GETTING PAIN MEDICATION AND THIS IS THE FIRST TIME THAT HE HAS SLEPT THROUGH THE NIGHT.
--- NOTE | 2021-02-27 14:23 | NUR ---
PT IS SOUNDLY ASLEEP AT THIS TIME. HE AWAKENS WHEN HIS NAME IS CALLED BUT IS GROGGY AND GOES BACK TO SLEEP IMMEDIATELY.
--- NOTE | 2021-02-27 14:27 | NUR ---
PT IS SLEEPING AND IS MINIMALLY RESPONSIVE. DAUGHTER HAS DOCUMENTS FOR PATIENT TO SIGN AND TO BE NOTORIZED BUT PT IS CURRENTLY UNABLE TO STAY AWAKE LONG ENOUGH TO SIGN. HE ANSWERS QUESTIONS APPROPRIATELY IF HE ABLE TO STAY AWAKE LONG ENOUGH TO ANSWER. DOCUMENTS UNABLE TO BE SIGNED AND NOTORIZED DUE TO THE PATIENT BEING UNABLE TO STAY AWAKE LONG ENOUGH TO DO SO.
--- NOTE | 2021-02-27 14:47 | NUR ---
DAUGHTER BRIEFLY AT BEDSIDE BUT HAS SINCE LEFT TO GO [employer]. PT'S DAUGHTER PROVIDED PHONE NUMBER TO [employer] [facility] WHICH IS A DONATE YOUR BODY TO [employer] [employer]. SHE WOULD PREFER THIS INSTEAD OF A HOME IF THE PATIENT PASSES.
--- NOTE | 2021-02-27 17:40 | NUR ---
PT ASLEEP. HARD TO AROUSE BUT RESPONDS TO TOUCH AND VOICE. DID NOT COMMUNICATE BACK WHEN I SPOKE TO HIM.
--- NOTE | 2021-02-27 18:39 | NUR ---
SHIFT SUMMARY PT HAS BEEN ASLEEP FOR THE ENTIRE SHIFT. HE IS AROUSABLE BUT IT IS DIFFICULT. PT IS APNEIC AND POSSIBLY IMMINENT. DAUGHTER IS CURRENTLY AT BEDSIDE. THERE WAS AN ISSUE TODAY REGUARDING POWER OF CLOUD CONSULTANT DOCUMENTS. PT IS UNABLE TO HAVE DOCUMENTS SIGNED AND NOTORIZED DUE TO NOT BEING RESPONSIVE. PALLIATIVE CARE HAS SPOKEN WITH THE PATIENT REGUARDING THE ISSUE. WILL REPORT TO HAZEL VILLAREAL.
--- NOTE | 2021-02-27 19:39 | NUR ---
PT RESTING QUIETLY IN BED W/ EYES OPEN. MADE EYE CONTACT W/ STAFF, NO PAIN BEHAVIOR OBSERVED. DAUGHTER STEPPED OUT OF ROOM DURING ASSESSMENT. PT CLEARING SECRETIONS BY COUGHING.
--- NOTE | 2021-02-27 23:05 | NUR ---
PT CAREGIVER CALLED CAREGIVER CALLED AND WANTED UPDATE ON PT STATUS. CAREGIVER PLANS TO COME VISIT THIS EVENING.
--- NOTE | 2021-02-28 04:45 | NUR ---
PT RESTING COMFORTLY IN BED, DENIES PAIN OR NEED FOR PAIN MEDS.
--- NOTE | 2021-02-28 05:14 | NUR ---
SHIFT SUMMARY PT RESTING IN BED T/O SHIFT. PT'S CAREGIVER IN TO VISIT AROUND 2330. PT HAVING APNEA BOUTS T/O SHIFT, ABLE TO TALK AND RESPOND, THOUGH DIFFICULT UNDERSTAND. PT HAS BEEN ASKING FOR DRINKS OF WATER T/O SHIFT. MEDICATED ONCE PER EMAR, PT RESPONDED WELL.
--- NOTE | 2021-02-28 06:21 | NUR ---
PT RESTING IN BED, PT ASKED FOR PAIN MED. PT APPEARS TO BE HAVING BOUTS OF APNEA.
--- NOTE | 2021-02-28 16:38 | NUR ---
SHIFT SUMMARY PT SLEEPING AND COMFORTABLE, TREATED WITH 5 MG ROXANOL 2X, ATIVAN X1, DUPONT PATENT & DRAINING ORANGE URINE W/LOW OUTPUT. KIMBERLEY PO H2O, DRINKING ENCOURAGED AND ASSISTED T/O SHIFT. WILL REPORT TO ONCOMING HAZEL VILLAREAL.
--- NOTE | 2021-02-28 19:44 | NUR ---
RECEIVED REPORT FROM DAY SHIFT. PT IS LYING QUIETLY IN BED WITH EYES CLOSED AND UNLABORED RESPIRATIONS. DUPONT DRAINING. WILL CONTINUE TO MONITOR.
--- NOTE | 2021-02-28 20:42 | NUR ---
PT RESTING QUIETLY, NO RESPIRATORY DISTRESS NOTED. DUPONT PATENT, NO MOTTOLING VISUALIZED. NO PAIN BEHAVIORS VISUALIZED. WCTM.
--- NOTE | 2021-02-28 22:38 | NUR ---
PT LYING QUIETLY IN BED, RESPOSITIONED ON LEFT SIDE, HEELS FLOATED. PT WITH WITNESSED APENIC EPISODE OF APPROX 50 SECONDS, RESPIRATORY RATE IRREGULAR. ORAL CARE COMPLETED. WCTM.
--- NOTE | 2021-03-01 01:13 | NUR ---
PT RESTING QUIETLY, NO CHANGE IN RESPIRATIONS AT THIS TIME. DUPONT PATENT. REPOSITIONED PRONE. RIGHT ARM ELEVATED. WCTM.
--- NOTE | 2021-03-01 03:02 | NUR ---
PT REPOSITIONED TO RIGHT SIDE. ORAL CARE COMPLETED, RESPIRATIONS UNCHANGED, CATHETER PATENT. WCTM.
--- NOTE | 2021-03-01 05:39 | NUR ---
PT RESTING QUIETLY. RESPIRATIONS WITH MILD DECREASE IN DEPTH. CATHETER PATENT. ORAL CARE COMPLETE. WCTM.
--- NOTE | 2021-03-01 06:35 | NUR ---
PT RESTING QUIETLY. SUCTIONING PROVIDED, SMALL AMT SECRETIONS. PT DOES NOT AROUSE TO SUCTIONING, BUT DOES CLOSE MOUTH. DUPONT PATENT, NO BM THIS SHIFT. PT REPOSITIONED. WILL REPORT TO DAY SHIFT RN.
--- NOTE | 2021-03-01 09:50 | NUR ---
PERFECT BINDER SETTER AND PRODUCTION SOUND MIXER CHANGED AND REPOSITIONED PT.
--- NOTE | 2021-03-01 17:13 | NUR ---
SHIFT SUMMARY PT RESTING COMFORTABLY. TREATED WITH ROXANOL X3 THIS SHIFT FOR COMFORT AND ATROPINE X2. DUPONT PATENT WITH LITTLE OUTPUT OF IBRAHIMA COLORED URINE. DAUGHTER VISITED FOR A FEW HOURS TODAY. TURNED AND REPOSITIONED Q2H. SUCTIONED WHEN NEEDED. WILL REPORT TO ONCOMING RN.
--- NOTE | 2021-03-02 04:11 | NUR ---
PT PASSED ON 03/01/21 AT 2234. DTR (RUPERT) NOTIFIED AT 2245. DTR RUPERT AND ANOTHER FAMILY MEMBER ARRIVED AT 2309, LEFT AT 2312. DTR TOOK PT'S GLASSES AND REPORTS SHE HAS ALL OF HIS OTHER BELONGINGS (WEDDING RING, CLOTHES, DENTURES). POST MORTEM CARE DONE. DUPONT REMOVED. LUE PICC REMOVED. PT PLACED IN DISPOSABLE BRIEFS. COVERED IN SHEET. MR ONESIMO SCHAEFFER FROM [facility] ARRIVED AT 0355. FACE SHEET WITH HAND WRITTEN TIME OF GIVEN TO MR SCHAEFFER. HE LEFT AT 0453.
== END 2021-03-02 04:35 | DRG 871 ==
LOC: ER 13:20 → PCU 17:23 → SURS 02-25 20:00
PROVIDERS: Emergency Medicine; Internal Medicine; ADMIT Internal Medicine
PROC: 0W993ZZ Drainage of Right Pleural Cavity, Percutaneous Approach (ICD-10-PCS; principal; 2021-02-23)
DX: A41.9 Sepsis, unspecified organism (principal); J69.0 Pneumonitis due to inhalation of food and vomit; J18.9 Pneumonia, unspecified organism; I50.23 Acute on chronic systolic (congestive) heart failure; J96.01 Acute respiratory failure with hypoxia; R65.21 Severe sepsis with septic shock; E43 Unspecified severe protein-calorie malnutrition; I21.A1 Myocardial infarction type 2; K72.00 Acute and subacute hepatic failure without coma; J44.0 Chronic obstructive pulmonary disease with (acute) lower respiratory infection; I42.0 Dilated cardiomyopathy; R64 Cachexia; Z68.1 Body mass index [BMI] 19.9 or less, adult; E87.2 Acidosis; N17.9 Acute kidney failure, unspecified; I69.351 Hemiplegia and hemiparesis following cerebral infarction affecting right dominant side; D68.4 Acquired coagulation factor deficiency; J90 Pleural effusion, not elsewhere classified; Z51.5 Encounter for palliative care; Z66 Do not resuscitate; I11.0 Hypertensive heart disease with heart failure; I25.10 Atherosclerotic heart disease of native coronary artery without angina pectoris; R74.01 Elevation of levels of liver transaminase levels; M32.9 Systemic lupus erythematosus, unspecified; E03.9 Hypothyroidism, unspecified; E78.5 Hyperlipidemia, unspecified; I25.5 Ischemic cardiomyopathy; R62.7 Adult failure to thrive; F17.210 Nicotine dependence, cigarettes, uncomplicated; K64.9 Unspecified hemorrhoids; D69.59 Other secondary thrombocytopenia; E87.5 Hyperkalemia; R13.10 Dysphagia, unspecified; F32.9 Major depressive disorder, single episode, unspecified; I51.3 Intracardiac thrombosis, not elsewhere classified; E87.6 Hypokalemia; E78.00 Pure hypercholesterolemia, unspecified; I25.2 Old myocardial infarction; Z95.5 Presence of coronary angioplasty implant and graft; Z98.890 Other specified postprocedural states; Z88.5 Allergy status to narcotic agent; Z88.8 Allergy status to other drugs, medicaments and biological substances; Z88.4 Allergy status to anesthetic agent; Z79.899 Other long term (current) drug therapy; Z79.82 Long term (current) use of aspirin; Z79.01 Long term (current) use of anticoagulants; Z90.49 Acquired absence of other specified parts of digestive tract; Z89.421 Acquired absence of other right toe(s); I69.391 Dysphagia following cerebral infarction
CPT/HCPCS: 31720; 32555; 36415; 36600; 70450; 71045; 71250; 74150; 80053; 81001; 82042; 82140; 82803; 83605; 83615; 83735; 83880; 84100; 84132; 84157; 84484; 85014; 85018; 85025; 85027; 85610; 85730; 87040; 87070; 87077; 87086; 87186; 87205; 88108; 88305; 89051; 92610; 93005; 93010; 94640; 94660; 94667; 94760; 94762; 96361-59; 96365-59; 97162; 97166; 97530; 99285-25; A9270; C1751; C8929; C9113; J1170; J1940; J2543; J3480; J7030; P9046; Q9957; U0004